=== PATIENT | female | born 1990 | race Two or more races ===

== ENCOUNTER 2023-08-25 13:21 | Emergency (ER) | payer OTHER, SELFPAY ==
--- NOTE | ~2023-08-25 | CT_ITS ---
EXAMINATION: CT HEAD WITHOUT CONTRAST CLINICAL INFORMATION: Headache. COMPARISON: None TECHNIQUE: Contiguous axial imaging was performed from the skull base to vertex without intravenous administration of contrast. This CT examination was performed using dose optimization techniques as appropriate, variously including the following: *Automated exposure control *Adjustment of mA and/or kV according to patient size (this includes techniques or standardized protocols for targeted exams where dose is matched to indication/reason for exam; i.e. extremities or head) *Use of iterative reconstruction technique DLP: 955 mGy-cm FINDINGS: There is no evidence of acute intracranial hemorrhage or edematous territorial infarction. There is no abnormal attenuation within the brain parenchyma. Yanes-white matter differentiation is preserved. The ventricles are normal in size and configuration. No evidence for obstructive hydrocephalus. No abnormal mass effect or midline shift. No extra-axial fluid collections. There is a 1.2 cm dural based calcification versus calcified meningioma in the interhemispheric falx (2:42). No acute soft tissue or osseous abnormalities. The mastoid air cells and paranasal sinuses are clear. CT/CT head/brain wo IV con IMPRESSION: No evidence of acute intracranial hemorrhage or edematous territorial infarction.
[2023-08-25 13:42] VITALS: BP 158/103; PULSE 104; RESP 18; TEMP 37; O2SAT 98; BMI 37.9
--- NOTE | 2023-08-25 13:42 | ED_ITS ---
HPI - General Adult General Chief complaint: Headache Stated complaint: neck pain Time Seen by Provider: 08/25/23 18:47 Source: patient Mode of arrival: ambulatory Limitations: no limitations History of Present Illness HPI narrative: Patient is a 33 year old assigned female at with no reported medical history presenting to the emergency department today with a right sided headache and nausea. Patient states that over the last 3 days she has had a right sided headache with nausea. Patient denies any dizziness, lightheadedness, abdominal pain, vomiting, fever, chills, blurry vision, double vision, loss of vision, chest pain, difficulty breathing, shortness of breath, back pain, night sweats, pain with urination, increased urinary frequency, increased urinary urgency, blood in her urine or stool, syncope or a near syncopal episode, recent trauma or falls, bowel incontinence, bladder incontinence, bowel retention, bladder retention, or any other complaints at this time. Onset (ago): day(s) (3) Location: head Radiation: non-radiation Severity: mild Severity scale (1-10): 3 Quality: aching and dull Pain Consistency: constant Relieving factors: none Exacerbating factors: none Associated symptoms: nausea/vomiting Treatments prior to arrival: none Related Data Previous Rx's Medication Instructions Recorded cenuktbmud-dphsdcrmnfgdz-[id number] 1 cap PO Q4-6H PRN headache #16 08/25/23 50 mg-300 mg-40 mg capsule caps (Fioricet) Allergies Allergy/AdvReac Type Severity Reaction Status Date / Time No Known Allergies Allergy Verified 08/25/23 13:45 [No Known Allergies*] Review of Systems 2 Constitutional: Constitutional: Reports no additional constitutional complaints, Denies chills, Denies fever(s), Reports headache(s) and Denies night sweats Eyes: Eyes: Reports no additional eye complaints, Denies blurry vision, Denies change in vision, Denies diplopia, Denies eye discharge, Denies loss of vision and Denies eye pain ENT: Denies dizziness and Reports headache(s) Cardiovascular: Cardiovascular: Reports no additional cardiovascular complaints, Denies chest pain, Denies lightheadedness, Denies Loss of Consciousness and Denies dyspnea Respiratory: Respiratory: Reports no additional respiratory complaints and Denies dyspnea Gastrointestinal: Gastrointestinal: Reports no additional gastrointestinal complaints, Denies abdominal pain, Denies melena, Denies hematochezia, Denies change in bowel habits, Denies change in stool character, Reports nausea and Denies vomiting Genitourinary: Genitourinary: Denies hematuria, Denies urinary frequency, Denies dysuria, Denies urinary incontinence, Denies urinary hesitancy and Denies urinary urgency Musculoskeletal: Musculoskeletal: Reports no additional musculoskeletal complaints, Denies numbness and Denies tingling Neurologic: Denies dizziness, Reports headache(s), Denies loss of vision, Denies numbness and Denies tingling Psychiatric: Psychiatric: Reports no additional psychiatric complaints Endocrine: Endocrine: Reports no additional endocrine complaints Hematologic/Lymphatic: Hematologic/Lymphatic: Reports no additional hematologic/lymphatic complaints Allergic/Immunologic: Allergic/Immunologic: Reports no additional allergic/immunologic complaints PMFSH Past Medical History Attestation statement: The following information was validated with the patient. Source: old records reviewed and nursing notes reviewed Social History Social History Smoked in Last 30 Days: No Use of substances other than those prescribed or required for medical reasons: No Advance Directives: No Advance Directives Information Provided: No Physical Exam ED Vital Signs: Vital Signs - 24 hr 08/25/23 13:42 08/25/23 19:05 Temperature 98.6 F 98.9 F Pulse Rate 104 H 101 H Respiratory Rate 18 17 Blood Pressure 158/103 H 151/95 H Pulse Oximetry 98 96 Oxygen Delivery Method Room Air Room Air BMI result Body Mass Index 37.9 Const General: cooperative, no acute distress, alert and awake Nutritional Appearance: well nourished Orientation/consciousness: patient oriented x3 Limitations: no limitations [facility] Head: Yes normal to inspection and Yes atraumatic Ears: hearing grossly normal bilaterally and external ears normal General nose exam: Normal external nose present, no nasal discharge noted and no epistaxis Face and sinus: Yes normal facial exam, No abrasion and No laceration Mouth: Normal oral and palatal mucosa present, no drooling and no muffled voice Eyes General: appearance normal, both eyes and all related structures Periorbital: periorbital findings normal Eyelids: Yes eyelids normal Conjunctivae: conjunctivae normal Pupils: Equal, round and reactive pupils present EOM: EOMs intact bilaterally Neck Neck: Yes normal visual inspection, Yes full ROM and Yes no lymphadenopathy Chest Chest palpation & inspection: normal inspection of the chest Resp Effort & Inspection: normal respiratory effort and able to speak in complete sentences GI Inspection: Yes normal to inspection Neuro General: patient oriented x3 and moves all extremities Cranial nerves: Yes Equal, round and reactive pupils present Cognition (Neuro): normal cognition Motor exam (neuro): 5/5 motor strength present throughout Sensory Exam: Normal double simultaneous stimulation for sensation Coordination: exjgcj-[id number] test normal Extrem General: Yes normal to inspection, Yes full ROM and Yes capillary refill normal Psych Appearance: grossly normal Mental Status: mental status grossly normal Affect: normal affect Attitude: cooperative Thought process: Normal thought process present Thought content: Normal thought content present Insight: Good insight present (Psych) Course Course Course Narrative: RME performed by Sonia Tamez PA-C. Patient is a 33 year old assigned female at presenting to the emergency department with a right sided headache that when sharp, causes vision changes. Detailed physical exam and review of systems are deferred to the autocad. Labs and swabs ordered. Patient placed back in the waiting room pending room availability and results. Reevaluation(s) Reevaluation #1: Patient received in sign-out at change of shift pending re-evaluation and CT scan the CT scan shows no acute pathology. Patient reports still having some headache. She appears quite well without neuro deficits. Patient be discharged to follow up with the PCP, we will discharge her with Kamlesh Time: 22:40 Medications Administered Discontinued Medications Generic Name Dose Route Start Last Admin Trade Name Freq PRN Reason Stop Dose Admin Diphenhydramine HCl 25 mg 08/25/23 18:50 08/25/23 19:19 Diphenhydramine Hcl 50 Mg/Ml Vial IVPUSH 08/25/23 18:51 25 mg ONCE ONE Administration Sodium Chloride 1,000 mls @ 999 mls/hr 08/25/23 19:00 08/25/23 21:05 Ns IV 08/25/23 20:00 Infused .Q1H1M SURESH Infusion Ketorolac Tromethamine 15 mg 08/25/23 18:49 08/25/23 19:19 Ketorolac Tromethamine 15 Mg/Ml Vial IVPUSH 08/25/23 18:50 15 mg ONCE ONE Administration Morphine Sulfate 4 mg 08/25/23 20:51 08/25/23 20:59 Morphine Sulfate 4 Mg/Ml Cartridge IVPUSH 08/25/23 20:52 4 mg ONCE ONE Administration Protocol Ondansetron HCl 4 mg 08/25/23 18:49 08/25/23 19:19 Ondansetron Hcl 4 Mg/2 Ml Vial IVPUSH 08/25/23 18:50 4 mg ONCE ONE Administration Medical Decision Making Medical Decision Making [facility] Narrative: Patient is a 33 year old assigned female at with no reported medical history presenting to the emergency department today with a headache and nausea. Patient's physical exam was unremarkable. Patient's blood work was unremarkable. I explained my physical exam findings as well as all test results to the patient. I answered all questions asked by the patient. Patient received IV pain medication which she stated didn't help very much. CT head ordered. IV morphine ordered. Patient signed out to overnight HARISH. Differential Diagnosis Differential Diagnoses: The differential diagnosis associated with the presentation includes Migraine Headache Nausea Admission/Observation Consideration of admission/observation: Escalation of care including admission/observation considered Patient's disposition will be determined after head CT and re-evaluation. Lab Data [facility] Lab Attestation statement: I reviewed the patient's lab results. My interpretation of these results are in the [facility] Rationale portion of this note. 08/25/23 13:51 08/25/23 13:51 Labs: Lab Results 08/25/23 Range/Units 13:51 WBC 5.9 (4.8-10.8) X10*3/uL RBC 4.59 (4.20-5.50) X10*6/uL Hgb 12.4 (12.0-16.0) g/dl Hct 36.8 L (37.0-47.0) % MCV 80.2 (80.0-98.0) fL MCH 27.0 (27.0-33.0) pg MCHC 33.7 (31.0-35.0) g/dl RDW 13.9 (11.0-16.0) % Plt Count 296 (160-400) X10*3/uL MPV 10.4 (9.4-12.3) fL Immature Gran % (Auto) 0.2 (0.0-0.4) % Neut % (Auto) 62.8 (45-73) % Lymph % (Auto) 27.2 (20-40) % [place] % (Auto) 7.4 (2-11) % Eos % (Auto) 1.7 (0-4) % Baso % (Auto) 0.7 (0-2) % Lymph # (Auto) 1.6 (1.2-4.9) X10*3/uL [place] # (Auto) 0.4 (0.1-1.2) X10*3/uL Eos # (Auto) 0.1 (0.0-0.4) X10*3/uL Baso # (Auto) 0.0 (0.0-0.2) X10*3/uL Abs Immat Gran (auto) 0.01 (0.00-0.03) X10*3/uL Absolute Neuts (auto) 3.7 (2.0-8.3) x10*3/uL Absolute Nucleated RBC 0.000 (0.0-0.012) X10*3/uL Nucleated RBC % (auto) 0.0 (0.0-0.2) /100WBC Sodium 136 (135-145) mmol/L Potassium 3.5 (3.3-5.1) mmol/L Chloride 105 (96-108) mmol/L Carbon Dioxide 23 (22-29) mmol/L Anion Gap 12 (12-20) BUN 5 L (9-16) mg/dL Creatinine 0.71 (0.5-1.4) mg/dL Estim Creat Clear Calc 141.2 Estimated GFR > 60 Random Glucose 134 H (60-115) mg/dL Calcium 9.7 (8.4-10.2) mg/dL Magnesium 1.7 (1.6-2.6) mg/dL Total Bilirubin 0.4 (0.0-1.0) mg/dL AST 38 H (5-31) U/L ALT 48 H (0-31) U/L Alkaline Phosphatase 80 (39-117) U/L Total Protein 7.1 (6.5-8.0) g/dL Albumin 3.9 (3.5-5.0) g/dL Beta HCG, Quant < 2 mIU/mL COVID-19 ([facility]) Negative (Negative) COVID-19 Clin Com See Note Influenza Type A ([facility]) Negative (Negative) Influenza Type B ([facility]) Negative (Negative) Influenza A & B Note See Note Critical Care Time Critical Care Time Critical Care Time: Yes Total Critical Care Time: 45 Attestation: I spent 45 minutes of Critical Care Time with this patient. This does not include time spent on separately reported billable procedures. Discharge Plan Discharge Clinical Impression: Headache Patient Disposition: Home, Self-Care Instructions: Acute Headache (DC) Additional Instructions: Follow up with your primary care provider. Return to the emergency department immediately if your symptoms worsen or if you develop any dizziness, shortness of breath, difficulty breathing, chest pain, blurry vision, loss of vision, nausea, vomiting, abdominal pain, fever, chills, back pain, or any other complaints. You may take Fioricet for further headaches Prescriptions: New kjvrpljibc-rskpedhrqbgpb-[id number] [Fioricet] 50-300-40 mg capsule 1 cap PO Q4-6H PRN (Reason: headache) Qty: 16 0RF Referrals: [facility] [place] Family Medicine [Provider Group] (Call to establish and follow up with a primary care provider. If you already have a primary care provider, please follow up with them.) [facility] [Provider Group] (Call to establish and follow up with a primary care provider. If you already have a primary care provider, please follow up with them.) [facility] [Provider Group] (Call to establish and follow up with a primary care provider. If you already have a primary care provider, please follow up with them.) Stand Alone Forms: Work/School Release Print Language: Persian
[2023-08-25 13:57] LABS: MANUAL DIFF FLAG NO
[2023-08-25 13:59] LABS: Basophils Percent Auto 0.7 % (0-2); Eosinophils Absolute Auto 0.1 X10*3/uL (0.0-0.4); Eosinophils Percent Auto 1.7 % (0-4); Hematocrit 36.8 % (37.0-47.0); Hemoglobin 12.4 g/dl (12.0-16.0); Imm Gran Abs Auto 0.01 X10*3/uL (0.00-0.03); Imm Gran Pct Auto 0.2 % (0.0-0.4); Lymphocytes Absolute Auto 1.6 X10*3/uL (1.2-4.9); Lymphocytes Percent Auto 27.2 % (20-40); Mean Corpuscular HGB Conc 33.7 g/dl (31.0-35.0); Mean Corpuscular Volume 80.2 fL (80.0-98.0); Mean Platelet Volume 10.4 fL (9.4-12.3); Monocytes Absolute Auto 0.4 X10*3/uL (0.1-1.2); Monocytes Percent Auto 7.4 % (2-11); Neutrophils Absolute Auto 3.7 x10*3/uL (2.0-8.3); Neutrophils Percent Auto 62.8 % (45-73); Platelet Count 296 X10*3/uL (160-400); Red Blood Count 4.59 X10*6/uL (4.20-5.50); Red Cell Distribution Width 13.9 % (11.0-16.0); White Blood Count 5.9 X10*3/uL (4.8-10.8)
[2023-08-25 14:14] LABS: COVID-19 Test Negative (Negative); IDNOW Serial# 08D9AD1C
[2023-08-25 14:15] LABS: IDNOW Serial# 152EDE1D; Influenza A Negative (Negative); Influenza B2 Negative (Negative)
[2023-08-25 14:22] LABS: Alanine Aminotransferase 48 U/L (0-31); Albumin Level 3.9 g/dL (3.5-5.0); Alkaline Phosphatase 80 U/L (39-117); Anion Gap 12 (12-20); Aspartate Amino Transferase 38 U/L (5-31); Bilirubin Total 0.4 mg/dL (0.0-1.0); Blood Urea Nitrogen 5 mg/dL (9-16); Calcium 9.7 mg/dL (8.4-10.2); Carbon Dioxide 23 mmol/L (22-29); Chloride 105 mmol/L (96-108); Creatinine Clr Calc Pharmacy 141.2; Estimated Glomerular Filt Rate > 60; Glucose Random 134 mg/dL (60-115); HCG Quantitative < 2 mIU/mL; Magnesium 1.7 mg/dL (1.6-2.6); Potassium 3.5 mmol/L (3.3-5.1); Sodium 136 mmol/L (135-145); Total Protein 7.1 g/dL (6.5-8.0)
[2023-08-25 19:05] VITALS: BP 151/95; PULSE 101; RESP 17; TEMP 37.2; O2SAT 96
[2023-08-25] MEDS: 0.9 % Sodium Chloride 1,000 ML 999 ML IV (19:10)
[2023-08-25] MEDS: ondansetron HCL 4 MG/2 ML VIAL IVPUSH (19:19)
[2023-08-25] MEDS: Ketorolac Tromethamine 15 MG/ML VIAL IVPUSH (19:19)
[2023-08-25] MEDS: diphenhydrAMINE HCL 50 MG/ML VIAL 25 MG IVPUSH (19:19)
--- NOTE | 2023-08-25 19:58 | PC.NURSE ---
pt reports no relief from migraine with medication administration
[2023-08-25] MEDS: Morphine Sulfate 4 MG/ML CARTRIDGE IVPUSH (20:59)
== END 2023-08-25 23:04 | disposition home or self-care (01) ==
PROVIDERS: Physician Assistant Medical; Emergency Provider Emergency Medicine Emergency Medical Services
DX: R51.9 Headache, unspecified (principal); M54.2 Cervicalgia; R11.2 Nausea with vomiting, unspecified; Z11.52 Encounter for screening for COVID-19; Z79.899 Other long term (current) drug therapy
CPT/HCPCS: 70450; 80053; 83735; 84702; 85025; 87502; 87635; 96361; 96374; 96375; 99284; 99285; J1200; J1885; J2270; J2405

== ENCOUNTER 2023-08-27 14:20 | Emergency (ER) | payer OTHER, SELFPAY ==
--- NOTE | ~2023-08-27 | CT_ITS ---
EXAMINATION: CT SOFT TISSUE NECK WITH CONTRAST CLINICAL INFORMATION: Lump along posterior right ear COMPARISON: CT head 08/25/2023 TECHNIQUE: Following the administration of 60 mL of Omnipaque 350 intravenous contrast, helical imaging was performed in the axial plane with generation of coronal and sagittal reformatted images. This CT examination was performed using dose optimization techniques as appropriate, variously including the following: *Automated exposure control. *Adjustment of mA and/or kV according to patient size (this includes techniques or standardized protocols for targeted exams where dose is matched to indication/reason for exam; i.e. extremities or head). *Use of iterative reconstruction technique. DLP: 943.18 mGy-cm mGy-cm. FINDINGS: A soft tissue skin marker overlies the right sternocleidomastoid muscle at the level of C2. There is extensive soft tissue stranding deep to the skin marker with thickening of the posterior right platysma. Soft tissue inflammatory changes track inferiorly along the right platysma to the level of the inferior mandible. There is heterogeneous enhancement of the right sternocleidomastoid muscle with edema tracking along the fascial planes and extending into the right posterior cervical musculature. Extensive soft tissue swelling extends superiorly outside the [id number]-eg-kwpd of this examination along the right posterior calvarium. Right-sided intraparotid lymph nodes are enlarged and hyperenhancing. No discrete, drainable component. Nasopharynx/Skull Base: Enlargement of the adenoid tonsils. The paranasal sinuses and mastoid air cells are well-aerated. Suprahyoid Neck: Artifact from dental amalgam degrades evaluation of the oral cavity/oropharynx. Dental caries and periapical lucencies noted. No exophytic mass/lesion is visualized within this constraint. The left parotid gland and bilateral submandibular glands are within normal limits. Infrahyoid Neck: Suboptimal evaluation secondary to apposed vocal folds. No exophytic mass/lesion is seen within this constraint. Thyroid: The thyroid is unremarkable without identifiable nodules. Nodes: Multistation enlarged right cervical lymph nodes are likely reactive. Lung Apices: The partially visualized lungs are clear. Vascular Structures:Common origin of the left common carotid artery and right brachiocephalic trunk. Retropharyngeal course of the left common carotid artery. The cervical vertebral arteries are not well assessed venous phase of imaging. Osseous Structures: No acute osseous abnormality. Other Findings: Limited intracranial evaluation is within normal limits. CT/CT soft tissue neck w IV con IMPRESSION: Extensive soft tissue inflammatory changes along the right lateral/posterior neck with involvement of the right sternocleidomastoid muscle and right posterior cervical musculature. Findings compatible with extensive cellulitis and myositis. No discrete, drainable component. Soft tissue inflammatory changes extend superiorly along the right posterior calvarium, outside the tffah-aq-oypa of this examination.
[2023-08-27 14:29] VITALS: BP 145/88; PULSE 107; RESP 20; TEMP 37.3; O2SAT 97
[2023-08-27 14:37] VITALS: BP 148/98; PULSE 105; O2SAT 95; BMI 51.4
--- NOTE | 2023-08-27 14:39 | ED_ITS ---
HPI - General Adult General Chief complaint: General Medical Stated complaint: FACIAL RASH NECK PAIN Time Seen by Provider: 08/27/23 14:33 Source: patient and EMS Mode of arrival: EMS Limitations: no limitations History of Present Illness HPI narrative: 33 year old female with no significant pmhx presents to the ED this afternoon via EMS from detention for evaluation of neck pain and facial rash x1 day. Endorses sharp, stabbing pain to the right side of her neck/head x1 week. She was evaluated at [facility] 2 days ago for headache with unremarkable CT scan/ work up and discharged home with toradol. Admits to waking up yesterday with severe right sided facial pain, right sided neck pain, bump to her right neck and rash to right side of face. Vaccinations UTD. Denies fevers, chills, sore throat, neck stiffness, N/V, confusion, vision changes, photophobia. Related Data Previous Rx's Medication Instructions Recorded ilcrecsaov-lchsxjsywkvyt-noyyizbw 1 cap PO Q4-6H PRN headache #16 08/25/23 50 mg-300 mg-40 mg capsule caps (Fioricet) cephalexin 500 mg capsule 500 mg PO QID 10 days #40 caps 08/27/23 doxycycline hyclate 100 mg tablet 100 mg PO BID 10 days #20 tabs 08/27/23 gabapentin 100 mg capsule 100 mg PO TID 10 days #30 caps 08/27/23 valacyclovir 1 gram tablet 1,000 mg PO TID 7 days #21 tabs 08/27/23 (Valtrex) Allergies Allergy/AdvReac Type Severity Reaction Status Date / Time No Known Allergies Allergy Verified 08/25/23 13:45 [No Known Allergies*] Review of Systems 2 Review of Systems: Constitutional: No fever, chills, fatigue, night sweats, weight changes ENT/Mouth: No ear pain, hearing loss, nasal congestion, sinus pain, rhinorrhea, sore throat Eyes: No eye pain, swelling, redness, vision changes, discharge Cardio: No chest pain, palpitations, MCKEON, orthopnea, peripheral edema Pulm: No SOB, cough, sputum, wheezing, dyspnea, hemoptysis GI: No nausea, vomiting, hematemesis, abdominal pain, diarrhea, constipation, hematochezia, melena : No irregular bleeding, dysuria, frequency, urgency, hesitancy, hematuria, flank pain, urinary flow changes, urinary incontinence or retention MSK: No back pain, joint pain, myalgias, +neck pain Skin: No lesions, +rash Neuro: No weakness, numbness, paresthesias, LOC, dizziness, headache All other systems reviewed and are negative. [facility] Past Medical History Attestation statement: The following information was validated with the patient. Source: old records reviewed and nursing notes reviewed Social History Social History Smoked in Last 30 Days: Yes Use of substances other than those prescribed or required for medical reasons: No Advance Directives: No Advance Directives Information Provided: No Patient : No Physical Exam ED Vital Signs: Vital Signs - 24 hr 08/27/23 14:29 08/27/23 15:53 08/27/23 19:04 Temperature 99.1 F 98.9 F Pulse Rate 107 H 78 76 Respiratory Rate 20 20 18 Blood Pressure 145/88 H 121/77 126/78 Pulse Oximetry 97 98 98 Oxygen Delivery Method Room Air Room Air Room Air BMI result Body Mass Index 0.5 Vital signs stable, afebrile Const General: cooperative, comfortable and no acute distress Nutritional Appearance: obese Orientation/consciousness: patient oriented x3 Limitations: no limitations HENMT Other: + refer to photos below + airway patent + painful, grouped vesicles on erythematous base in unilateral (right) dermatomal pattern including V2, V3, C2, C3, C4 + posterior auricular LAD bilaterally + no involvement of the left EAC. No involvement of eyes. PERRLA. normal visual gautam by confrontation. Ears: hearing grossly normal bilaterally, TM's normal bilaterally, EAC's normal and mastoids normal Eyes Other: + no vesicles General: appearance normal, both eyes and all related structures Conjunctivae: conjunctivae normal Sclerae: sclerae normal Pupils: Equal, round and reactive pupils present Neck Other: + no cervical, mandibular or submental LAD. + negative kernigs and brudzinski Neck: Yes no meningeal signs Resp Effort & Inspection: normal respiratory effort Auscultation: clear to auscultation bilaterally Cardio Rate: regular rate Rhythm: regular rhythm Peripheral pulses: Peripheral pulses 2+ throughout GI Inspection: Yes normal to inspection Palpation (GI): Soft to palpation Skin Other: + please refer to photos above + no sloughing. no involvement of mucous membranes. no involvement of palm, soles, or webbed spaces. General skin exam: no excoriation(s) Neuro General: patient oriented x3, gait normal and no meningeal signs Cranial nerves: Yes Equal, round and reactive pupils present Extrem General: Yes normal to inspection Course Course Course Narrative: 0-- CBC without leukocytosis or anemia. No left shift. Sed rate wnl. CRP slightly increased to 0.96. Chronically elevated liver enzymes. Chemistry without acute electrolyte abnormalities requiring intervention. POC 136 > unlikely new onset DM with malignant otitis externa. CT soft tissues neck showing soft tissue inflammation along right lateral/posterior neck with involvement of right sternocleidomastoid mm and right posterior cervical musculature, consistent with cellulitis and myositis. >> cultures sent to lab to assess for staph vs herpes zoster. patient admits to having chickenpox as a child. she has also received immunization against chickenpox. 1829-- There is no evidence of fluid collection to suggest abscess requiring drainage. Case discussed with my attending physician, Dr. Hernandez who, after reviewing CT and evaluating patient, agrees that rash may be zoster in etiology. Will send PO valtrex and gabapentin to pharmacy. will also treat with keflex and doxy to cover for cellulitis. I do not believe this warrants IV treatment at this time. >>discussed workup and treatment with patient. discussed worrisome signs and symptoms & when to return to the ED. all questions answered at this time. patient has remained stable throughout ED visit today. Patient has remained stable throughout ED visit today. Patient is agreeable with disposition and stable for discharge. Medications Administered Discontinued Medications Generic Name Dose Route Start Last Admin Trade Name Jermaineq PRN Reason Stop Dose Admin Iohexol 60 ml 08/27/23 16:52 08/27/23 16:53 Iohexol 350 Mg/Ml 100 Ml Infus..Btl IV 08/27/23 16:53 60 ml ONCE ONE Administration Ketorolac Tromethamine 60 mg 08/27/23 16:35 08/27/23 16:37 Ketorolac Tromethamine 60 Mg/2 Ml Vial IM 08/27/23 16:36 60 mg ONCE ONE Administration Morphine Sulfate 4 mg 08/27/23 15:15 08/27/23 15:43 Morphine Sulfate 4 Mg/Ml Cartridge IVPUSH 08/27/23 15:16 4 mg ONCE ONE Administration Protocol Medical Decision Making Medical Decision Making MDM Narrative: 33 year old female with no significant pmhx presents to the ED this afternoon via EMS from detention for evaluation of neck pain and facial rash x1 day. Vital signs stable, afebrile. On exam, there are painful, grouped vesicles on erythematous base in unilateral (right) dermatomal pattern including V2, V3, C2, C3, C4. posterior auricular LAD bilaterally. No involvement of the left EAC. No involvement of eyes. PERRLA. normal visual gautam by confrontation. no sloughing. no involvement of mucous membranes. no involvement of palm, soles, or webbed spaces. Clinical concern for dermatitis, poison wayne, cellulitis, herpez zoster, herpes simplex. Lower suspicion for abscess, sepsis, drug eruption, allergic reaction. Unlikely anaphylaxis, mastoiditis, malignant otitis externa, herpes zoster ophthalmicus, akila arndt, SJS/TEN, scabies, hand/foot/mouth, meningitis. Plan for basic labs, POC, lactic, inflammatory markers, bhcg, and CT soft tissues neck ordered. Plan for pain control and re-evaluation. Differential Diagnosis Differential Diagnoses: The differential diagnosis associated with the presentation includes as above Admission/Observation Consideration of admission/observation: Escalation of care including admission/observation considered Lab Data [facility] Lab Attestation statement: I reviewed the patient's lab results. as above. 08/27/23 15:36 08/27/23 15:36 Labs: Lab Results 08/27/23 08/27/23 Range/Units 15:36 15:47 WBC 5.2 (4.8-10.8) X10*3/uL RBC 4.72 (4.20-5.50) X10*6/uL Hgb 12.4 (12.0-16.0) g/dl Hct 38.0 (37.0-47.0) % MCV 80.5 (80.0-98.0) fL MCH 26.3 L (27.0-33.0) pg MCHC 32.6 (31.0-35.0) g/dl RDW 13.9 (11.0-16.0) % Plt Count 261 (160-400) X10*3/uL MPV 10.5 (9.4-12.3) fL Immature Gran % (Auto) 0.4 (0.0-0.4) % Neut % (Auto) 69.5 (45-73) % Lymph % (Auto) 19.9 L (20-40) % [place] % (Auto) 9.2 (2-11) % Eos % (Auto) 0.6 (0-4) % Baso % (Auto) 0.4 (0-2) % Lymph # (Auto) 1.0 L (1.2-4.9) X10*3/uL [place] # (Auto) 0.5 (0.1-1.2) X10*3/uL Eos # (Auto) 0.0 (0.0-0.4) X10*3/uL Baso # (Auto) 0.0 (0.0-0.2) X10*3/uL Abs Immat Gran (auto) 0.02 (0.00-0.03) X10*3/uL Absolute Neuts (auto) 3.6 (2.0-8.3) x10*3/uL Absolute Nucleated RBC 0.000 (0.0-0.012) X10*3/uL Nucleated RBC % (auto) 0.0 (0.0-0.2) /100WBC ESR 11 (0-20) MM/HR Sodium 137 (135-145) mmol/L Potassium 3.6 (3.3-5.1) mmol/L Chloride 103 (96-108) mmol/L Carbon Dioxide 25 (22-29) mmol/L Anion Gap 13 (12-20) BUN 5 L (9-16) mg/dL Creatinine 0.76 (0.5-1.4) mg/dL Estim Creat Clear Calc 242.8 Estimated GFR > 60 POC Glucose 136 H (60-115) mg/dL Random Glucose 127 H (60-115) mg/dL Lactic Acid 1.6 (0.5-2.0) mmol/L Calcium 9.0 D (8.4-10.2) mg/dL Magnesium 1.9 (1.6-2.6) mg/dL Total Bilirubin 0.4 (0.0-1.0) mg/dL AST 35 H (5-31) U/L ALT 52 H (0-31) U/L Alkaline Phosphatase 78 (39-117) U/L C-Reactive Protein 0.96 H (< or = 0.50) mg/dL Total Protein 7.2 (6.5-8.0) g/dL Albumin 4.0 (3.5-5.0) g/dL Beta HCG, Quant < 2 mIU/mL Independent Interpretation I performed an independent interpretation of an: CT Scan Interpretation: I have personally reviewed CT scan and agree with radiologist's interpretation. Radiology Impression Discussion of test interpretation with radiology: I have reviewed the radiologist's reading. Radiologist Impression: CT soft tissue neck w IV con IMPRESSION: Extensive soft tissue inflammatory changes along the right lateral/posterior neck with involvement of the right sternocleidomastoid muscle and right posterior cervical musculature. Findings compatible with extensive cellulitis and myositis. No discrete, drainable component. Soft tissue inflammatory changes extend superiorly along the right posterior calvarium, outside the [id number]-il-evlz of this examination. Independent Historian Clinical information obtained from an independent historian. History obtained from or confirmed by: EMS External Record Review External record reviewed: Inpatient record Prescription Management I considered prescription management with: Pain Medication, Antiviral and Antibiotic Social Determinants Patient?s care significantly limited by Social Determinants of Health including: Other Social Determinant of Health Critical Care Time Critical Care Time Critical Care Time: Yes Total Critical Care Time: 40 Attestation: Critical care time in the amount of 40 minutes has been provided to the patient in terms of direct patient care, frequent reevaluation on IV morphine, review and interpretation of medical data and results, and management of potentially life-threatening conditions. This is all outside of any medical procedures. Discharge Plan Discharge Clinical Impression: Herpes zoster, Cellulitis of face Patient Disposition: Home, Self-Care Instructions: Shingles (ED), Cellulitis (ED) Additional Instructions: You were evaluated in the emergency department today for rash and pain to the right side of her face. Cultures of your skin lesions or sent to the lab to assess for infection vs shingles. You likely have herpes zoster, better known as shingles. Herpes zoster can be extremely painful. Valacyclovir (valtrex) has been sent to your pharmacy. Take this as prescribed over the next 7 days. Gabapentin is a nerve pain medication. Take this as needed for pain. Keflex is an antibiotic that has been sent to your pharmacy. Take this as prescribed for the next 10 days. Doxycycline is an antibiotic that has been sent to your pharmacy. Take this as prescribed for the next 10 days. Take both of these antibiotics to completion. Do not finish them earlier or skip any doses as this may cause infection to worsen or return. You are contagious until all of the lesions open and crust over. Please follow up with your PCP. If the rash begins to spread to your eye or you begin to have vision changes, please return to the emergency department. If symptoms persist or worsen despite treatment, please return to the emergency department. In the case of an emergency call 911. Prescriptions: New valacyclovir [Valtrex] 1 gram tablet 1,000 mg PO TID 7 Days Qty: 21 0RF cephalexin 500 mg capsule 500 mg PO QID 10 Days Qty: 40 0RF doxycycline hyclate 100 mg tablet 100 mg PO BID 10 Days Qty: 20 0RF gabapentin 100 mg capsule 100 mg PO TID 10 Days Qty: 30 0RF No Action nsiqhddzvk-owgqezbpfxhin-viji [Fioricet] 50-300-40 mg capsule 1 cap PO Q4-6H PRN (Reason: headache) Qty: 16 0RF Referrals: Physician,None [Primary Care Provider] - Stand Alone Forms: Work/School Release Interventions: ED Discharge Assessment Last Done: 08/27/23 19:06 Discharge Date/Time: 08/27/23 19:08
[2023-08-27 15:43] LABS: MANUAL DIFF FLAG NO
[2023-08-27] MEDS: Morphine Sulfate 4 MG/ML CARTRIDGE IVPUSH (15:43)
[2023-08-27 15:45] LABS: Basophils Percent Auto 0.4 % (0-2); Eosinophils Percent Auto 0.6 % (0-4); Hemoglobin 12.4 g/dl (12.0-16.0); Imm Gran Abs Auto 0.02 X10*3/uL (0.00-0.03); Imm Gran Pct Auto 0.4 % (0.0-0.4); Lymphocytes Percent Auto 19.9 % (20-40); Mean Corpuscular HGB Conc 32.6 g/dl (31.0-35.0); Mean Corpuscular Hemoglobin 26.3 pg (27.0-33.0); Mean Corpuscular Volume 80.5 fL (80.0-98.0); Mean Platelet Volume 10.5 fL (9.4-12.3); Monocytes Absolute Auto 0.5 X10*3/uL (0.1-1.2); Monocytes Percent Auto 9.2 % (2-11); Neutrophils Absolute Auto 3.6 x10*3/uL (2.0-8.3); Neutrophils Percent Auto 69.5 % (45-73); Platelet Count 261 X10*3/uL (160-400); Red Blood Count 4.72 X10*6/uL (4.20-5.50); Red Cell Distribution Width 13.9 % (11.0-16.0); White Blood Count 5.2 X10*3/uL (4.8-10.8)
[2023-08-27 15:51] LABS: Glucose, Whole Blood 136 mg/dL (60-115)
[2023-08-27 15:53] VITALS: BP 121/77; PULSE 78; RESP 20; O2SAT 98
[2023-08-27 15:55] LABS: Lactic Acid 1.6 mmol/L (0.5-2.0)
[2023-08-27 15:58] LABS: Alanine Aminotransferase 52 U/L (0-31); Alkaline Phosphatase 78 U/L (39-117); Anion Gap 13 (12-20); Aspartate Amino Transferase 35 U/L (5-31); Bilirubin Total 0.4 mg/dL (0.0-1.0); Blood Urea Nitrogen 5 mg/dL (9-16); C Reactive Protein 0.96 mg/dL (< or = 0.50); Carbon Dioxide 25 mmol/L (22-29); Chloride 103 mmol/L (96-108); Creatinine Clr Calc Pharmacy 242.8; Estimated Glomerular Filt Rate > 60; Glucose Random 127 mg/dL (60-115); Magnesium 1.9 mg/dL (1.6-2.6); Potassium 3.6 mmol/L (3.3-5.1); Sodium 137 mmol/L (135-145); Total Protein 7.2 g/dL (6.5-8.0)
[2023-08-27 16:26] LABS: Erythrocyte Sedimentation Rate 11 MM/HR (0-20)
[2023-08-27 16:27] LABS: HCG Quantitative < 2 mIU/mL
[2023-08-27] MEDS: Ketorolac Tromethamine 60 MG/2 ML VIAL IM (16:37)
[2023-08-27] MEDS: iohexoL 350 MG/ML 100 ML INFUS..BTL 60 ML IV (16:53)
[2023-08-27 19:04] VITALS: BP 126/78; PULSE 76; RESP 18; TEMP 37.2; O2SAT 98
== END 2023-08-27 19:08 | disposition home or self-care (01) ==
PROVIDERS: Physician Assistant; Physician Assistant Medical; Emergency Provider Student in an Organized Health Care Education/Training Program
DX: B02.8 Zoster with other complications (principal); L03.211 Cellulitis of face; M54.2 Cervicalgia; Z79.899 Other long term (current) drug therapy
CPT/HCPCS: 36415; 70491; 80053; 82947; 83605; 83735; 84702; 85025; 85652; 86140; 87070; 87205; 87252; 87254; 96372; 96374; 99284; J1885; J2270; Q9967